=== PATIENT | male | born 2005 ===

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

== ENCOUNTER 2024-10-18 07:23 | Day surgery (SDC) | payer BC ==
[~2024-10-18] VITALS: Ht 180.3 cm; Wt 69.4 kg
[2024-10-18] MEDS ORDERED: propofoL 50 ML IV ONE (07:35)
[2024-10-18] MEDS ORDERED: Lactated Ringer's 1,000 ML IV ONE ×2 (07:36→08:29)
[2024-10-18] MEDS ORDERED: Midazolam HCL 1 MG/ML 5MLVIAL ONE (08:35)
[2024-10-18 09:47] VITALS: BP 108/68
== END 2024-10-18 09:50 | disposition home or self-care (01) ==
LOC: ORSCSDS 07:23
DX: K62.5 Hemorrhage of anus and rectum (principal); R19.4 Change in bowel habit; R10.9 Unspecified abdominal pain
CPT/HCPCS: 88305; 88342; J2250; J2704; J7120